=== PATIENT | female | born 1995 | race Caucasian/White ===

== ENCOUNTER 2018-01-17 17:48 | Emergency (ER) | payer BC, OTHER ==
[2018-01-17] MEDS ORDERED: Naproxen TAB* 250 MG PO ONE (19:32)
[2018-01-17 19:58] LABS: ABS Basophils 0.1 10^3/ul (0-0.2); ABS Eosinophils 0.1 10^3/ul (0-0.6); ABS Lymphocytes 2.3 10^3/ul (1.0-4.8); ABS Monocytes 0.7 10^3/ul (0-0.8); ABS Neutrophils 5.1 10^3/ul (1.5-7.7); ABS Nucleated RBC 0 10^3/ul; Eosinophil % 1.7 % (0-6); Hematocrit 40 % (35-47); Hemoglobin 13.7 g/dl (12.0-16.0); Lymphocyte % 27.9 % (25-47); Mean Corpuscular HGB Conc 34 g/dl (31-36); Mean Corpuscular Hemoglobin 32 pg (27-31); Mean Corpuscular Volume 92 fL (80-97); Mean Platelet Volume 8 um3 (7.4-10.4); Nucleated Red Blood Cells % 0; Platelet Count 304 10^3/ul (150-450); Red Blood Count 4.33 10^6/ul (4.0-5.4); Red Cell Distribution Width 13 % (10.5-15); White Blood Count 8.3 10^3/ul (3.5-10.8)
--- NOTE | 2018-01-17 20:34 | RAD ---
INDICATION: Dyspareunia COMPARISON: None TECHNIQUE: Longitudinal and transverse transabdominal and transvaginal scans of the pelvis were obtained. FINDINGS: Uterus: The uterus is normal in size. There are no focal masses. The uterus measures 6.7 x 3.2 x 4.4 cm. Endometrial thickness: The endometrial thickness is measured at 0.4 cm. There is an IUD in expected position.. Free fluid: There is no significant free fluid . Ovaries: The ovaries are normal in size. The right ovary measures 2.7 x 1.7 x 2.1 cm. The left ovary measures 2.2 x 1.4 x 1.7 cm. . Doppler interrogation demonstrates flow to each ovary. Other: None IMPRESSION: NORMAL STUDY. IUD IN EXPECTED POSITION.
[2018-01-17] MEDS ORDERED: Azithromycin TAB* 250 MG PO ONE (20:51)
[2018-01-17] MEDS ORDERED: cefTRIAXone VIAL(*) 250 MG VIAL IM ONE (20:51)
[2018-01-17] MEDS ORDERED: Lidocaine 1%* 5 ML VIAL ONE (21:10)
[2018-01-17 21:21] VITALS: BP 126/74
--- NOTE | 2018-01-17 21:30 | ED ---
Belinda Eli Julia, scribed for Yoel Alcantara MD on 01/17/18 at 1944 . GI/ HPI - HPI Summary HPI Summary: This patient is a 22 year old F presenting to [facility] with a chief complaint of lower abdominal pain and heavy vaginal bleeding since this morning after intercourse. Patient reports back pain at baseline. Patient denies fever and vaginal discharge. The patient rates the pain 5/10 in severity. Symptoms aggravated by intercourse. Patient states these symptoms happen predictable after intercourse usually lasting a few hours. She does not have regular menstrual periods with a Merena IUD. She denies pain before intercourse and multiple sexual partners. - History of Current Complaint Chief Complaint: EDUrogenitalProblems Time Seen by Provider: 01/17/18 19:10 Stated Complaint: LOWER ABD PAIN Hx Obtained From: Patient Hx Last Menstrual Period: IUD Onset/Duration: Started Hours Ago Timing: Constant Pain Intensity: 5 Location of Pain: Suprapubic Associated Signs and Symptoms: Positive: Back Pain - Allergy/Home Medications Allergies/Adverse Reactions: Allergies Allergy/AdvReac Type Severity Reaction Status Date / Time No Known Allergies Allergy Verified 05/20/16 21:12 PMH/Surg Hx/FS Hx/Imm Hx Endocrine/Hematology History: Reports: Hx Anemia - HX OF Denies: Hx Diabetes, Hx Thyroid Disease, Other Endocrine/Hematological Disorders Cardiovascular History: Denies: Hx Hypertension, Other Cardiovascular Problems/Disorders Respiratory History: Denies: Hx Asthma, Hx Chronic Obstructive Pulmonary Disease (COPD), Other Respiratory Problems/Disorders GI History: Reports: Other GI Disorders - HX ANOREXIA/BULIMIA Denies: Hx Ulcer History: Denies: Other Problems/Disorders Musculoskeletal History: Reports: Hx Tendonitis - LEFT FOOT Denies: Other Musculoskeletal History Sensory History: Reports: Hx Contacts or Glasses - GLASSES Denies: Hx Hearing Aid, Other Sensory Impairments Opthamlomology History: Reports: Hx Contacts or Glasses - GLASSES Denies: Other Sensory Impairments Neurological History: Reports: Other Neuro Impairments/Disorders - HX OF ANOREXIA/BULIMIA Psychiatric History: Reports: Hx Anxiety, Hx Eating Disorder, Hx Depression, Hx Substance Abuse - HX of Substance Abuse Denies: Hx of Violent Episodes Against Others, Other Psychiatric Issues/ Disorders Infectious Disease History: No Infectious Disease History: Denies: Hx Hepatitis, Hx Human Immunodeficiency Virus (HIV), History Other Infectious Disease, Traveled Outside the [place] in Last 30 Days - Family History Family History: Pt denies relevant family history. - Social History Occupation: Employed Full-time Alcohol Use: Rare Hx Substance Use: No Substance Use Type: Reports: None Hx Tobacco Use: Yes Smoking Status (MU): Former Smoker Type: Cigarettes Amount Used/How Often: sporadic use Length of Time of Smoking/Using Tobacco: 10 YRS Have You Smoked in the Last Year: Yes Review of Systems Negative: Fever Positive: Abdominal Pain Positive: other - vaginal bleeding. Negative: discharge All Other Systems Reviewed And Are Negative: Yes Physical Exam - Summary Physical Exam Summary: Appearance: Well appearing, no pain distress Skin: warm, dry, reflects adequate perfusion Head/face: normal Eyes: EOMI, AMILCAR ENT: normal Neck: supple, non-tender Respiratory: CTA, breath sounds present Cardiovascular: RRR, pulses symmetrical Abdomen: , soft, r pelvic discomfort to deep palpation Bowel: present Musculoskeletal: strength/ROM intact, scaring of both forearms from self injury Neuro: normal, sensory motor intact, A&Ox3 Pelvic: Mild amount of dark blood in vault from cervix, IUD wire protruding from cervix, no cervical motion tenderness Triage Information Reviewed: Yes Vital Signs On Initial Exam: Initial Vitals Temp Pulse Resp BP Pulse Ox 98.6 F 69 16 132/80 99 01/17/18 18:02 01/17/18 18:02 01/17/18 18:02 01/17/18 18:02 01/17/18 18:02 Vital Signs Reviewed: Yes Diagnostics - Vital Signs Vital Signs Temp Pulse Resp BP Pulse Ox 01/17/18 18:02 98.6 F 69 16 132/80 99 - Laboratory Lab Results: Lab Results 01/17/18 01/17/18 Range/Units 19:51 19:51 WBC 8.3 (3.5-10.8) 10^3/ul RBC 4.33 (4.0-5.4) 10^6/ul Hgb 13.7 (12.0-16.0) g/dl Hct 40 (35-47) % MCV 92 (80-97) fL MCH 32 H (27-31) pg MCHC 34 (31-36) g/dl RDW 13 (10.5-15) % Plt Count 304 (150-450) 10^3/ul MPV 8 (7.4-10.4) um3 Neut % (Auto) 61.6 (38-83) % Lymph % (Auto) 27.9 (25-47) % [place] % (Auto) 7.9 (1-9) % Eos % (Auto) 1.7 (0-6) % Baso % (Auto) 0.9 (0-2) % Absolute Neuts (auto) 5.1 (1.5-7.7) 10^3/ul Absolute Lymphs (auto) 2.3 (1.0-4.8) 10^3/ul Absolute Monos (auto) 0.7 (0-0.8) 10^3/ul Absolute Eos (auto) 0.1 (0-0.6) 10^3/ul Absolute Basos (auto) 0.1 (0-0.2) 10^3/ul Absolute Nucleated RBC 0 10^3/ul Nucleated RBC % 0 Sodium 136 (133-145) mmol/L Potassium 4.0 (3.5-5.0) mmol/L Chloride 105 (101-111) mmol/L Carbon Dioxide 25 (22-32) mmol/L Anion Gap 6 (2-11) mmol/L BUN 15 (6-24) mg/dL Creatinine 0.64 (0.51-0.95) mg/dL Est GFR ( Amer) 146.6 (>60) Est GFR (Non-Af Amer) 114.0 (>60) BUN/Creatinine Ratio 23.4 H (8-20) Glucose 94 (70-100) mg/dL Calcium 9.5 (8.6-10.3) mg/dL Total Bilirubin 0.30 (0.2-1.0) mg/dL AST 16 (13-39) U/L ALT 11 (7-52) U/L Alkaline Phosphatase 41 (34-104) U/L Total Protein 6.8 (6.4-8.9) g/dL Albumin 4.3 (3.2-5.2) g/dL Globulin 2.5 (2-4) g/dL Albumin/Globulin Ratio 1.7 (1-3) Beta HCG, Quant < 0.60 mIU/mL Result Diagrams: 01/17/18 19:51 01/17/18 19:51 Lab Statement: Any lab studies that have been ordered have been reviewed, and results considered in the medical decision making process. - Additional Comments Diagnostic Additional Comments: A transvaginal US reveals: NORMAL STUDY. IUD IN EXPECTED POSITION. ED Physician has reviewed this report. GIGU Course/Dx - Course Course Of Treatment: Min bleeding here, from cervix. STI prophylaxis given, though no real findings on exam. US wnl, including placement of IUD. Start Ponstel. Pt has hx of possible endometriosis and her dysfunctional bleeding is becoming chronic at this point. F/U closely with [facility] [facility]. - Diagnoses Differential Diagnoses - Female: Endometriosis, Ovarian Cyst, Ovarian Torsion, STD, Other - malpositioned IUD Provider Diagnoses: Dysfunctional uterine bleeding, Dyspareunia Discharge - Discharge Plan Condition: Good Disposition: HOME Prescriptions: Mefenamic Acid 250 mg PO TID #9 capsule Patient Education Materials: Dysfunctional Uterine Bleeding (ED) Referrals: Gato Bernal MD [Medical Doctor] - Isai Solis MD [Primary Care Provider] - Additional Instructions: Call your OBGYN in the morning for appt. Return with heavy bleeding, worse or other concerns. Hold on intercourse until rechecked. The documentation as recorded by the Belinda montiel Julia accurately reflects the service I personally performed and the decisions made by me, Yoel Alcantara MD.
== END 2018-01-17 21:29 | disposition home or self-care (01) ==
LOC: ED 17:48
DX: N93.8 Other specified abnormal uterine and vaginal bleeding (principal); N94.10 Unspecified dyspareunia; M54.9 Dorsalgia, unspecified; R10.30 Lower abdominal pain, unspecified; Z87.891 Personal history of nicotine dependence
CPT/HCPCS: 36415; 76830; 76856; 80053; 84702; 85025; 87491; 87591; 96372; 99284; A9270-GY; J0696